=== PATIENT | female | born 1995 | race Caucasian/White ===

== ENCOUNTER 2020-11-05 18:03 | Observation (INO) | payer BC ==
[~2020-11-05] VITALS: Ht 154.9 cm; Wt 96.2 kg
[2020-11-05 20:57] LABS: HEMOGLOBIN 12.1 gm/dl (12.3-15.3); RED BLOOD COUNT 4.31 M/UL (4.00-5.10); WHITE BLOOD COUNT 10.2 K/UL (4.5-11.0)
[2020-11-05 21:15] LABS: BUN/CREATININE RATIO 9 (0-10)
[2020-11-05] MEDS ORDERED: MACROBID 100 M100 MG PO (22:57)
[2020-11-05] MEDS ORDERED: ONDANSETRON HCL4 MG PO (22:58)
[2020-11-05] MEDS ORDERED: PRENATAL FORMU1 EAC2 PO (22:59)
[2020-11-07] MEDS ORDERED: BACTRIM 400-801 EACH PO (10:04)
== END 2020-11-07 10:56 | disposition home or self-care (01) ==
LOC: ER1 18:03 → CDU 21:41 → OB 11-06 00:16
PROVIDERS: Physician Assistant; ADMIT Obstetrics & Gynecology
DX: O23.02 Infections of kidney in pregnancy, second trimester (principal); Z3A.15 15 weeks gestation of pregnancy; Z79.899 Other long term (current) drug therapy
CPT/HCPCS: 80053; 81001; 83605; 85025; 85652; 86140; 87040; 87086; 96361; 96365; 96367; 96375; 99284; G0378; J0696; J2550; J7120

== ENCOUNTER 2020-11-24 19:20 | Emergency (ER) | payer BC ==
[~2020-11-24 19:20] MED LIST: BACTRIM 400-801 EACH PO; MACROBID 100 M100 MG PO; ONDANSETRON HCL4 MG PO; PRENATAL FORMU1 EAC2 PO
[2020-11-24 21:10] LABS: HEMOGLOBIN 11.5 gm/dl (12.3-15.3); RED BLOOD COUNT 4.08 M/UL (4.00-5.10); WHITE BLOOD COUNT 8.8 K/UL (4.5-11.0)
[2020-11-24 21:28] LABS: BUN/CREATININE RATIO 13 (0-10)
== END 2020-11-24 22:36 | disposition home or self-care (01) ==
LOC: ER1 19:20
PROVIDERS: Internal Medicine
DX: O99.891 Other specified diseases and conditions complicating pregnancy (principal); R10.9 Unspecified abdominal pain; Z3A.18 18 weeks gestation of pregnancy
CPT/HCPCS: 80053; 81001; 84702; 85025; 99284

== ENCOUNTER 2021-03-27 13:36 | Outpatient (CLI) | payer BC | END 2021-03-27 15:30 | disposition home or self-care (01) | LOC: GENOP 13:36 | DX: O16.3 Unspecified maternal hypertension, third trimester (principal); O42.913 Preterm premature rupture of membranes, unspecified as to length of time between rupture and onset of labor, third trimester; Z3A.35 35 weeks gestation of pregnancy; O23.43 Unspecified infection of urinary tract in pregnancy, third trimester; O99.353 Diseases of the nervous system complicating pregnancy, third trimester; G43.909 Migraine, unspecified, not intractable, without status migrainosus | CPT/HCPCS: 81001; 83518; G0463 ==

== ENCOUNTER 2021-04-09 12:34 | Inpatient (IN) | payer BC ==
[~2021-04-09] VITALS: Ht 154.9 cm; Wt 113.4 kg
[2021-04-09 13:36] LABS: HEMOGLOBIN 11.8 gm/dl (12.3-15.3); RED BLOOD COUNT 4.38 M/UL (4.00-5.10); WHITE BLOOD COUNT 8.5 K/UL (4.5-11.0)
[2021-04-09 13:59] LABS: BUN/CREATININE RATIO 11 (0-10)
[2021-04-11] MEDS ORDERED: IBUPROFEN600 MG PO (16:44)
[2021-04-11] MEDS ORDERED: DOCUSATE SODIU100 MG PO (16:44)
== END 2021-04-11 18:33 | disposition home or self-care (01) | DRG 806 ==
LOC: GENOP 12:34 → OB 16:35
PROVIDERS: ADMIT Obstetrics & Gynecology
PROC: 10907ZC Drainage of Amniotic Fluid, Therapeutic from Products of Conception, Via Natural or Artificial Opening (ICD-10-PCS; principal; 2021-04-10)
PROC: 10E0XZZ Delivery of Products of Conception, External Approach (ICD-10-PCS; principal; 2021-04-10)
PROC: 0HQ9XZZ Repair Perineum Skin, External Approach (ICD-10-PCS; principal; 2021-04-10)
DX: O10.92 Unspecified pre-existing hypertension complicating childbirth (principal); O99.354 Diseases of the nervous system complicating childbirth; Z37.0 Single live birth; O99.824 Streptococcus B carrier state complicating childbirth; Z3A.37 37 weeks gestation of pregnancy; O70.0 First degree perineal laceration during delivery; G43.909 Migraine, unspecified, not intractable, without status migrainosus; Z20.828 Contact with and (suspected) exposure to other viral communicable diseases
CPT/HCPCS: 36415; 51702; 80053; 81001; 82570; 82800; 83615; 84156; 84550; 85014; 85018; 85025; 90471; 90715; J2590; J7120; U0002